=== PATIENT | male | born 1965 | race Hispanic/Latino ===

== ENCOUNTER 2019-09-07 09:23 | Emergency (ER) | payer OTHER ==
[2019-09-07] MEDS ORDERED: oxyCODONE /ACETAMINOPHEN 5-325MG TAB PO ONE (09:39)
[2019-09-07] MEDS ORDERED: TETANUS,DIPH,PERTUSS(ACELL) VACCINE 0.5 ML SYRINGE IM ONE (09:39)
--- NOTE | 2019-09-07 09:45 | Emergency Department Report ---
ED Upper Extremity Inj HPI - General Chief Complaint: Extremity Injury, Upper Stated Complaint: FINGER INJURY/CUT Time Seen by Provider: 09/07/19 09:39 Source: patient Mode of arrival: Ambulatory Limitations: No Limitations - History of Present Illness Initial Comments: Mr. Christianson is a 54 yo right handed male who presents with crush injury laceration to the right ring finger. The heavy metal dock plate of a truck fell onto his hand. He is a truck car and bus cleaner. He has a large laceration. He was able to see the bone. MD Complaint: Injury to:: right, finger -: Sudden, This morning Other Extremity Injury: Fingers: Right Other Injuries: none Handedness: right Place: work Severity scale (0 -10): 6 Context: direct blow, crush Associated Symptoms: denies other symptoms - Related Data Allergies Allergy/AdvReac Type Severity Reaction Status Date / Time No Known Allergies Allergy Unverified 09/07/19 09:24 ED Review of Systems ROS: Stated complaint: FINGER INJURY/CUT Other details as noted in HPI Constitutional: denies: fever, malaise Skin: change in color Neurological: denies: numbness, paresthesias ED Past Medical Hx - Past Medical History Previous Medical History?: No - Surgical History Past Surgical History?: No - Social History Smoking Status: Never Smoker ED Physical Exam - General Limitations: No Limitations General appearance: alert, in no apparent distress - Head Head exam: Present: atraumatic, normocephalic - ENT ENT exam: Present: mucous membranes moist - Neck Neck exam: Present: normal inspection - Respiratory Respiratory exam: Absent: respiratory distress - Neurological Exam Neurological exam: Present: alert, oriented X3 - Psychiatric Psychiatric exam: Present: normal affect, normal mood - Other Other exam information: right index finger: volar aspect large flap defect 5 cm in length laceration deep to bone with wide exposure to ligament, large soft tissue defect with partial amputation at the distal portion, laceration begin at radial aspect of distal tip to proximal finger, able to flex at dip pip mcp, dusky coloration to tip of finger intact sensation distally to light touch ED Course Vital Signs 09/07/19 09:30 Temperature 97.5 F L Pulse Rate 63 Respiratory 20 Rate Blood Pressure 142/82 O2 Sat by Pulse 100 Oximetry ED Medical Decision Making - Radiology Data Radiology results: report reviewed Right index finger: 2 views comminuted fracture of the distal phalanx with extension of fracture to the middle phalanx - Medical Decision Making crush injury to right index finger with partial amputation, open fractures with flexor tendon laceration Transferred to [facility], accepting attending physician Dr. He treated with PO/IV analgesia, IV ancef, TDap in ED Critical care attestation.: If time is entered above; I have spent that time in minutes in the direct care of this critically ill patient, excluding procedure time. ED Disposition Clinical Impression: Crushing injury of finger of right hand, Finger fracture, right, Partial traumatic amputation of finger through phalanx, Flexor tendon laceration of finger with open wound Disposition: [id number] ANOTHER TYPE HLTHCARE Is pt being admited?: No Does the pt Need Aspirin: No Condition: Stable
[2019-09-07] MEDS ORDERED: ONDANSETRON 4 MG ODT TAB PO ONE (09:49)
[2019-09-07] MEDS ORDERED: ceFAZolin/NS 1 GM/50 ML 1 GM/50 ML BAG IV ONE (10:00)
--- NOTE | 2019-09-07 10:45 | XRay Report ---
RIGHT HAND 3 VIEWS INDICATION / CLINICAL INFORMATION: crush injury finger COMPARISON: None available. FINDINGS: BONES / JOINT(S): There are comminuted fractures of the middle and distal phalanges of the fourth fin marc. No significant arthritis. SOFT TISSUES: There is soft tissue injury and soft tissue swelling. ADDITIONAL FINDINGS: None. Signer Name: Garett Hensley MD Signed: 09/07/2019 10:41 AM Workstation Name: [id number]
[2019-09-07] MEDS ORDERED: MORPHINE 4 MG/1 ML INJ IV ONE (11:53)
[2019-09-07 12:17] VITALS: BP 155/88
== END 2019-09-07 12:15 | disposition other institution (70) ==
LOC: ED 09:23
DX: S62.624A Displaced fracture of middle phalanx of right ring finger, initial encounter for closed fracture (principal); S62.635A Displaced fracture of distal phalanx of left ring finger, initial encounter for closed fracture; S56.125A Laceration of flexor muscle, fascia and tendon of right ring finger at forearm level, initial encounter; W20.8XXA Other cause of strike by thrown, projected or falling object, initial encounter; Y93.89 Activity, other specified; Y92.89 Other specified places as the place of occurrence of the external cause; Y99.8 Other external cause status
CPT/HCPCS: 73140; 90471; 90715; 96365; 96375; 99285; J0690; J2270; Q0162